=== PATIENT | male | born 1945 | race African-American/Black ===

== ENCOUNTER 2018-12-21 14:40 | Emergency (ER) | payer OTHER ==
[~2018-12-21] VITALS: Ht 172.7 cm; Wt 94.8 kg
[2018-12-21 14:48] VITALS: BP 102/71
--- NOTE | 2018-12-21 14:48 | NUR ---
RECEIVED PT FROM EMS PLACED ON CARESCAPE ON DOCUMENTED SETTINGS FROM FACILITY, ALARMS ARE ON AND AUDIBLE, OTS TRACH PORTEX 7 IS SECURE, PT IN HF NOT ALERT, PRODUCTION MECHANIC OBTAINED COPABELINO LI HOB,VENT PLUGGED INTO RED OUTLET Addendum: 12/21/18 at 1805 by Carley Govea RT [id number] FIO2 INCREASED TO 50 PER ABG Addendum: 12/21/18 at 1806 by Carley Govea RT 1635 TO 1650 PT TAKEN TO AND FROM C-SCAN WITHOUT INCIDENT
[2018-12-21 14:53] VITALS: BP 111/72
[2018-12-21] MEDS ORDERED: NACL 0.9% 500 ML IV SCH (14:54)
--- NOTE | 2018-12-21 15:02 | NUR ---
PT BIBA FROM [facility] , PER EMS PT HAS HAD RESPIRATROY DISTRESS X2 HOURS; POSSIBLE ASPIRATION. PT HAS [facility], PT WAS PLACED ON VENT AT [facility], PT PLACED ON VENT ON ARRIVAL. PER EMS PT EYES WERE NON REACTIVE AND NO BLINKING NOTED, ONCE IN BED, PT CLOSED EYES BUT DOES NOT FOLLOW COMMANDS. PMH STROKE W/ RT SIDE WEAK, RESP. FAIL, SEIZURES, DM, CHF
[2018-12-21] MEDS ORDERED: LEVOFLOXACIN 500 MG/D5W PREMIX 100 ML IV ONE (16:00)
--- NOTE | 2018-12-21 16:00 | NUR ---
LAB AT BEDSIDE.
[2018-12-21 16:30] VITALS: BP 111/72
--- NOTE | 2018-12-21 16:30 | NUR ---
PT TO CT SCAN VIA MAINOR W/ RT, [place], AND RN AMOR.
[2018-12-21 16:34] LABS: BASOPHILS % (AUTO) 0.4 % (0.0-2.0); EOSINOPHILS % (AUTO) 0.2 % (0.0-4.0); HEMATOCRIT 37.7 % (36-52); HEMOGLOBIN 12.2 g/dL (12.0-18.0); LYMPHOCYTES # (AUTO) 0.6 K/uL (2.0-11.5); LYMPHOCYTES % (AUTO) 5.7 % (20.5-51.1); MEAN CORPUSCULAR HEMOGLOBIN 31 pg (27-31); MEAN CORPUSCULAR HGB CONC 32 g/dL (33-37); MEAN CORPUSCULAR VOLUME 96.6 fL (80-94); MONOCYTES # (AUTO) 1.2 K/uL (0.8-1.0); MONOCYTES % (AUTO) 11.5 % (1.7-9.3); NEUTROPHILS # (AUTO) 8.6 K/uL (1.8-7.7); NEUTROPHILS % (AUTO) 82.2 % (42.2-75.2); PLATELET COUNT (AUTO) 230 K/uL (140-450); RED BLOOD CELL COUNT(AUTO) 3.91 MIL/uL (4.20-6.10); RED CELL DISTRIBUTION WIDTH 15.5 % (11.6-13.7); WHITE BLOOD COUNT (AUTO) 10.5 K/uL (4.8-10.8)
--- NOTE | 2018-12-21 16:46 | NUR ---
PT RETURNED FROM CT SCAN.
[2018-12-21 17:08] LABS: ALBUMIN 1.8 g/dL (3.4-5.0); ANION GAP 12.4 (8-16); ASPARTATE AMINOTRANSFERASE 21 U/L (15-37); CARBON DIOXIDE 28.8 mmol/L (21-32); CHLORIDE 104 mmol/L (98-107); CREATININE 1.1 mg/dL (0.7-1.3); GLUCOSE 109 mg/dL (74-106); POTASSIUM 4.2 mmol/L (3.5-5.1); PROTHROMBIN TIME 11.4 secs (10.8-13.4); SODIUM SERUM 141 mmol/L (136-145); TOTAL BILIRUBIN 0.5 mg/dL (0.0-1.0); UREA NITROGEN, BLOOD 30 mg/dL (7-18)
[2018-12-21] MEDS ORDERED: NACL 0.9% 1,000 ML IV ONE (17:20)
[2018-12-21 17:57] LABS: APPEARANCE,URINE CLOUDY (CLEAR); BILIRUBIN,URINE 1+ (NEGATIVE); BLOOD, URINE 3+ (NEGATIVE); COLOR,URINE DARK YELLOW (YELLOW); LEUKOCYTE ESTERASE ,URINE 2+ (NEGATIVE); NITRITE, URINE NEGATIVE (NEGATIVE); UGLUCOSE NEGATIVE (NEGATIVE)
[2018-12-21 18:05] LABS: RBC,URINE TOO NUMEROUS TO COUN /HPF (0-5); URINE AMORPHOUS URATE 1+ /HPF (None Seen); WBC,URINE TOO MANY TO COUNT /HPF (0-5)
--- NOTE | 2018-12-21 19:18 | NUR ---
REPORT GIVEN TO VI POTTS; TRANSFER OF CARE AT THIS TIME.
--- NOTE | 2018-12-21 19:26 | NUR ---
ASSUMED CARE OF PATIENT AT THIS TIME, PT IS RESTING COMFORTABLY IN BED, OPENS EYES TO ENVIRONMENTAL STIMULI, PT ON VENT AT 99% 02, GUDINO BELOW BED LEVEL DRAINING WELL.AWAITNG TRANSFER INFORMATION FROM [facility].
[2018-12-21 20:23] VITALS: BP 117/68
--- NOTE | 2018-12-21 21:00 | NUR ---
PT IN BED, RESTING IN STABLE CONDITION AT THIS TIME. AWAITING FOR TRANSPORT TO [place]. WILL CONTINUE TO MONITOR CLOSELY.
--- NOTE | 2018-12-21 21:25 | NUR ---
CALLED [facility] REPORT GIVEN TO VI HAGEN PT. TO GO TO ICU #740. PT IN STABLE CONDITION AT THIS TIME. WILL CONTINUE TO MONITOR CLOSELY.
--- NOTE | 2018-12-21 22:21 | NUR ---
[facility] at bedside.
[2018-12-21 22:25] VITALS: BP 115/64
--- NOTE | 2018-12-21 22:25 | NUR ---
Patient discharged with v/s stable. Ambulance Transport with [facility] with CCT and RN, to go to [facility] ICU #[address] under the care of Dr. Burke Payton. Report called and spoke with VI Khan at [facility] ICU.
== END 2018-12-21 22:25 | disposition short-term general hospital (02) ==
LOC: MED 14:40
DX: J18.9 Pneumonia, unspecified organism (principal); A41.9 Sepsis, unspecified organism; J96.90 Respiratory failure, unspecified, unspecified whether with hypoxia or hypercapnia; I24.9 Acute ischemic heart disease, unspecified; I50.9 Heart failure, unspecified; N39.0 Urinary tract infection, site not specified; E11.9 Type 2 diabetes mellitus without complications; Z86.73 Personal history of transient ischemic attack (TIA), and cerebral infarction without residual deficits; Z88.8 Allergy status to other drugs, medicaments and biological substances; Z98.890 Other specified postprocedural states
CPT/HCPCS: 36415; 36600; 70450; 71045; 80053; 81001; 82803; 83605; 83880; 84484; 85025; 85610; 85730; 87040; 87070; 87086; 87186; 87205; 89220; 93005; 96365; 99291; J1956; J7030; Q0092